=== PATIENT | male | born 1980 ===

== ENCOUNTER 2018-09-10 14:21 | Outpatient (RCR) | payer OTHER | END 2018-12-01 | disposition home or self-care (01) | LOC: WSOH | DX: S80.01XA Contusion of right knee, initial encounter (principal); M25.561 Pain in right knee; W22.09XA Striking against other stationary object, initial encounter; Y92.59 Other trade areas as the place of occurrence of the external cause; Y99.0 Civilian activity done for income or pay; Z79.899 Other long term (current) drug therapy; Z87.891 Personal history of nicotine dependence | CPT/HCPCS: 24091; A6549 ==